=== PATIENT | male | born 1945 | race Caucasian/White ===

== ENCOUNTER 2017-07-02 09:18 | Outpatient (CLI) | payer OTHER, BC ==
[~2017-07-02 09:18] MED LIST: AMIO200T2 PO; DILT120C89 PO; HYDR-4039 PO; LOSA100T11 PO; WARF2.5T2 PO; WARF5TAB2 PO
== END 2017-07-02 19:54 | disposition home or self-care (01) ==
LOC: SNM 09:18
DX: C61 Malignant neoplasm of prostate (principal); M25.559 Pain in unspecified hip; M89.9 Disorder of bone, unspecified
CPT/HCPCS: 78306; A9503

== ENCOUNTER 2018-01-21 17:57 | Emergency (ER) | payer OTHER, BC ==
[~2018-01-21] VITALS: Ht 175.3 cm; Wt 82.1 kg
[~2018-01-21 17:57] MED LIST changes: +AMIO100T4 PO; -AMIO200T2 PO; -LOSA100T11 PO; +LOSA100T3 PO; -WARF2.5T2 PO; +WARF4TAB2 PO; -WARF5TAB2 PO
[2018-01-21 17:58] VITALS: BP_SYST 158
[2018-01-21 18:18] LABS: BILIRUBIN,URINE NEGATIVE (NEGATIVE); CLARITY/URINE CLEAR (CLEAR); COLOR,URINE YELLOW (YELLOW); GLUCOSE,URINE NEGATIVE (NEGATIVE); KETONES,URINE NEGATIVE (NEGATIVE); LEUKOCYTE ESTERASE ,URINE NEGATIVE (NEGATIVE); NITRITE, URINE NEGATIVE (NEGATIVE); PROTEIN URINE NEGATIVE (NEGATIVE); UROBILINOGEN,URINE 0.2 (0.2-1.0)
[2018-01-21 18:19] LABS: BLOOD, URINE TRACE (NEGATIVE)
[2018-01-21 18:25] LABS: BACTERIA,URINE RARE /HPF (None Seen); RBC,URINE 0-3 /HPF (0-3); WBC,URINE 0-3 /HPF (0-3)
[2018-01-21 18:28] LABS: BASOPHILS # (AUTO) 0.1 K/uL (0.0-0.2); EOSINOPHILS # (AUTO) 0.2 K/uL (0.0-0.4); EOSINOPHILS % (AUTO) 2.9 % (0.0-4.0); HEMATOCRIT 42.4 % (36-54); HEMOGLOBIN 14.1 g/dL (14.0-18.0); LYMPHOCYTES # (AUTO) 3.3 K/uL (1.0-5.5); LYMPHOCYTES % (AUTO) 40.2 % (20.5-51.5); MEAN CORPUSCULAR HEMOGLOBIN 30 pg (27-31); MEAN CORPUSCULAR HGB CONC 33 % (32-36); MEAN CORPUSCULAR VOLUME 90 fL (79.0-98.0); MONOCYTES # (AUTO) 0.7 K/uL (0.0-1.0); MONOCYTES % (AUTO) 8.7 % (1.7-9.3); NEUTROPHILS % (AUTO) 47.2 % (40.0-70.0); PLATELET COUNT (AUTO) 266 K/uL (130-430); RED BLOOD CELL COUNT(AUTO) 4.72 MIL/uL (4.2-6.2); RED CELL DISTRIBUTION WIDTH 13.6 % (9.0-15.0); WHITE BLOOD COUNT (AUTO) 8.3 K/uL (4.8-10.8)
[2018-01-21 18:36] LABS: ANION GAP 10 (5-15); CALCIUM 8.7 mg/dL (8.4-11.0); CHLORIDE 105 mmol/L (98-107); CREATININE 0.88 mg/dL (0.55-1.30); GLUCOSE 110 mg/dL (70-99); POTASSIUM 3.4 mmol/L (3.5-5.1); SODIUM SERUM 141 mmol/L (136-145); UREA NITROGEN, BLOOD 18 mg/dL (8-21)
[2018-01-21 18:38] LABS: INR 2.4 (0.80-1.20); PROTHROMBIN TIME 24.6 SECS (9.5-12.5)
[2018-01-21 18:42] LABS: ALANINE AMINOTRANSFERASE 34 U/L (12-78); ALBUMIN 3.9 g/dL (3.4-4.8); ASPARTATE AMINOTRANSFERASE 21 U/L (10-37); TOTAL BILIRUBIN 0.4 mg/dL (0.0-1.0)
[2018-01-21] MEDS ORDERED: POTASSIUM CHLORIDE 10 MEQ TAB.PRT.SR PO ONE (19:00)
[2018-01-21 19:05] VITALS: BP_SYST 158
== END 2018-01-21 19:05 | disposition home or self-care (01) ==
LOC: SED 17:57
DX: R31.9 Hematuria, unspecified (principal); I48.91 Unspecified atrial fibrillation; K21.9 Gastro-esophageal reflux disease without esophagitis; I10 Essential (primary) hypertension; Z85.46 Personal history of malignant neoplasm of prostate; Z79.899 Other long term (current) drug therapy
CPT/HCPCS: 36415; 80053; 81000-TC; 85025; 85610-TC; 85730-TC; 99284

== ENCOUNTER 2018-09-16 08:22 | Emergency (ER) | payer BC, OTHER ==
[~2018-09-16] VITALS: Ht 177.8 cm; Wt 81.6 kg
[2018-09-16 08:22] VITALS: BP_SYST 159
--- NOTE | 2018-09-16 08:22 | NUR ---
BROUGHT BACK TO BED #4 AND TRIAGED. REPORT GIVEN TO ZHAO
--- NOTE | 2018-09-16 08:45 | NUR ---
ROMÁN Guthrie at bedside examining patient.
--- NOTE | 2018-09-16 08:46 | NUR ---
Patient presented to the ER c/o High blood pressure. Patient A&Ox4, afebrile, respirations equal bilat, ambulatory. Patient states he has a home blood pressure monitor at home, this morning he checked BP 196/96 at home so he decided to come to the ER. upon arrival BP 159/90. Patient states he is anxious and wanted to ensure BP was not elevated.
--- NOTE | 2018-09-16 09:14 | NUR ---
Patient given written and verbal discharge instructions and verbalizes understanding. ER MD discussed with patient the results and treatment provided. Patient in stable condition. ID arm band removed. No Rx given. Patient educated on pain management and to follow up with PMD. Pain Scale 0/10 . Opportunity for questions provided and answered. Medication side effect fact sheet provided.
[2018-09-16 09:15] VITALS: BP_SYST 132
== END 2018-09-16 09:15 | disposition home or self-care (01) ==
LOC: SED 08:22
DX: F41.9 Anxiety disorder, unspecified (principal); I10 Essential (primary) hypertension; I48.91 Unspecified atrial fibrillation; K21.9 Gastro-esophageal reflux disease without esophagitis; Z85.46 Personal history of malignant neoplasm of prostate; Z79.899 Other long term (current) drug therapy
CPT/HCPCS: 99283; 99284

== ENCOUNTER 2018-11-08 16:35 | Emergency (ER) | payer BC ==
[~2018-11-08] VITALS: Ht 175.3 cm; Wt 82.6 kg
[2018-11-08 16:37] VITALS: BP_SYST 160
[2018-11-08 17:06] LABS: BILIRUBIN,URINE NEGATIVE (NEGATIVE); BLOOD, URINE 3+ (NEGATIVE); CLARITY/URINE SL HAZY (CLEAR); COLOR,URINE YELLOW (YELLOW); GLUCOSE,URINE NEGATIVE (NEGATIVE); KETONES,URINE NEGATIVE (NEGATIVE); LEUKOCYTE ESTERASE ,URINE NEGATIVE (NEGATIVE); NITRITE, URINE NEGATIVE (NEGATIVE); PROTEIN URINE NEGATIVE (NEGATIVE); UROBILINOGEN,URINE 0.2 (0.2-1.0)
[2018-11-08 17:15] LABS: BACTERIA,URINE FEW /HPF (None Seen); RBC,URINE 50-80 /HPF (0-3); WBC,URINE 0-3 /HPF (0-3)
[2018-11-08 17:16] LABS: MUCUS,URINE None Seen /LPF (None Seen)
[2018-11-08 19:31] VITALS: BP_SYST 154
== END 2018-11-08 19:31 | disposition home or self-care (01) ==
LOC: SED 16:35
DX: N50.3 Cyst of epididymis (principal); I48.91 Unspecified atrial fibrillation; K21.9 Gastro-esophageal reflux disease without esophagitis; I10 Essential (primary) hypertension; F41.9 Anxiety disorder, unspecified; Z85.46 Personal history of malignant neoplasm of prostate; Z79.899 Other long term (current) drug therapy
CPT/HCPCS: 76870-TC; 81000-TC; 87491; 87591; 99284

== ENCOUNTER 2018-11-28 17:23 | Emergency (ER) | payer BC ==
[~2018-11-28] VITALS: Ht 175.3 cm; Wt 83.9 kg
[2018-11-28 17:27] VITALS: BP_SYST 145
[2018-11-28] MEDS ORDERED: MAG HYDROX/AL HYDROX/SIMETH 30 ML, DICYCLOMINE HCL 20 MG, LIDOCAINE VISCOUS 2% 15ML (PO... PO ONE ×3 (17:45)
[2018-11-28 18:18] LABS: BASOPHILS # (AUTO) 0.1 K/uL (0.0-0.2); BASOPHILS % (AUTO) 1.1 % (0.0-2.0); EOSINOPHILS # (AUTO) 0.2 K/uL (0.0-0.4); EOSINOPHILS % (AUTO) 2.7 % (0.0-4.0); HEMATOCRIT 41.1 % (36-54); HEMOGLOBIN 13.4 g/dL (14.0-18.0); LYMPHOCYTES # (AUTO) 2.7 K/uL (1.0-5.5); LYMPHOCYTES % (AUTO) 32.5 % (20.5-51.5); MEAN CORPUSCULAR HEMOGLOBIN 29 pg (27-31); MEAN CORPUSCULAR HGB CONC 33 % (32-36); MEAN CORPUSCULAR VOLUME 89 fL (79.0-98.0); MONOCYTES # (AUTO) 0.7 K/uL (0.0-1.0); MONOCYTES % (AUTO) 8.6 % (1.7-9.3); NEUTROPHILS # (AUTO) 4.6 K/uL (1.8-7.7); NEUTROPHILS % (AUTO) 55.1 % (40.0-70.0); PLATELET COUNT (AUTO) 261 K/uL (130-430); RED BLOOD CELL COUNT(AUTO) 4.62 MIL/uL (4.2-6.2); RED CELL DISTRIBUTION WIDTH 15.3 % (9.0-15.0); WHITE BLOOD COUNT (AUTO) 8.3 K/uL (4.8-10.8)
[2018-11-28 18:26] LABS: ANION GAP 6 (5-15); CALCIUM 8.7 mg/dL (8.4-11.0); CHLORIDE 101 mmol/L (98-107); CREATININE 1.01 mg/dL (0.55-1.30); GLUCOSE 135 mg/dL (70-99); SODIUM SERUM 136 mmol/L (136-145); UREA NITROGEN, BLOOD 17 mg/dL (8-21)
[2018-11-28 18:28] LABS: POTASSIUM 2.7 mmol/L (3.5-5.1)
[2018-11-28] MEDS ORDERED: POTASSIUM CHLORIDE 20 MEQ/PKT PACKET PO ONE (18:30)
[2018-11-28 18:31] LABS: ALANINE AMINOTRANSFERASE 43 U/L (12-78); ALBUMIN 3.4 g/dL (3.4-4.8); ASPARTATE AMINOTRANSFERASE 37 U/L (10-37); LIPASE 81 U/L (73-393); TOTAL BILIRUBIN 0.5 mg/dL (0.0-1.0)
[2018-11-28 19:05] VITALS: BP_SYST 131
== END 2018-11-28 19:05 | disposition home or self-care (01) ==
LOC: SED 17:23
DX: R10.9 Unspecified abdominal pain (principal); E11.9 Type 2 diabetes mellitus without complications; I10 Essential (primary) hypertension; Z85.46 Personal history of malignant neoplasm of prostate; Z79.899 Other long term (current) drug therapy
CPT/HCPCS: 36415; 71045; 80053; 82550; 83690; 84484; 85025; 93005; 99284; J2001

== ENCOUNTER 2019-05-29 11:46 | Emergency (ER) | payer BC ==
[~2019-05-29] VITALS: Ht 175.3 cm; Wt 80.3 kg
[2019-05-29 12:26] VITALS: BP_SYST 139
[2019-05-29 13:07] LABS: ANION GAP 8 (5-15); CALCIUM 9.3 mg/dL (8.4-11.0); CHLORIDE 101 mmol/L (98-107); CREATININE 1.17 mg/dL (0.55-1.30); GLUCOSE 104 mg/dL (70-99); POTASSIUM 3.3 mmol/L (3.5-5.1); SODIUM SERUM 140 mmol/L (136-145); UREA NITROGEN, BLOOD 21 mg/dL (8-21)
[2019-05-29 13:12] LABS: BASOPHILS # (AUTO) 0.1 K/uL (0.0-0.2); BASOPHILS % (AUTO) 0.8 % (0.0-2.0); EOSINOPHILS # (AUTO) 0.1 K/uL (0.0-0.4); EOSINOPHILS % (AUTO) 1.9 % (0.0-4.0); HEMATOCRIT 42.8 % (36-54); HEMOGLOBIN 14.4 g/dL (14.0-18.0); LYMPHOCYTES # (AUTO) 2.1 K/uL (1.0-5.5); LYMPHOCYTES % (AUTO) 27.6 % (20.5-51.5); MEAN CORPUSCULAR HEMOGLOBIN 30 pg (27-31); MEAN CORPUSCULAR HGB CONC 34 % (32-36); MEAN CORPUSCULAR VOLUME 90 fL (79.0-98.0); MONOCYTES # (AUTO) 0.6 K/uL (0.0-1.0); MONOCYTES % (AUTO) 8.1 % (1.7-9.3); NEUTROPHILS # (AUTO) 4.7 K/uL (1.8-7.7); NEUTROPHILS % (AUTO) 61.6 % (40.0-70.0); PLATELET COUNT (AUTO) 282 K/uL (130-430); RED BLOOD CELL COUNT(AUTO) 4.75 MIL/uL (4.2-6.2); RED CELL DISTRIBUTION WIDTH 14.5 % (9.0-15.0); WHITE BLOOD COUNT (AUTO) 7.6 K/uL (4.8-10.8)
[2019-05-29 13:13] LABS: ALANINE AMINOTRANSFERASE 35 U/L (12-78); ALBUMIN 4.2 g/dL (3.4-4.8); ASPARTATE AMINOTRANSFERASE 21 U/L (10-37); TOTAL BILIRUBIN 0.7 mg/dL (0.0-1.0)
--- NOTE | 2019-05-29 14:07 | NUR ---
Patient to ER bed 04 to gown for evaluation. Side rails up.
--- NOTE | 2019-05-29 14:10 | NUR ---
ROMÁN Lang examining patient.
--- NOTE | 2019-05-29 14:12 | NUR ---
Patient arrived via POV, AAOx4, and ambulatory with steady gait. Patient c/c of ongoing daily nausea and dyspepsia for one month. Patient notes mild non radiating pain to the epigastric region. Patient was given a 2 week prescription of Zantac with limited relief. Patient states pain and nausea are worse after eating. Patient states no vomiting, diarrhea, fever, or recent illness. Patient calm and cooperative. Will continue to follow up and monitor.
[2019-05-29] MEDS ORDERED: MAG HYDROX/AL HYDROX/SIMETH 30 ML, LIDOCAINE VISCOUS 2% 15ML (PO) 10 ML, DICYCLOMINE HC... PO ONE ×3 (14:30)
[2019-05-29] MEDS ORDERED: POTASSIUM CHLORIDE 20 MEQ/PKT PACKET PO ONE (14:30)
[2019-05-29 14:52] LABS: BILIRUBIN,URINE NEGATIVE (NEGATIVE); BLOOD, URINE 1+ (NEGATIVE); CLARITY/URINE CLEAR (CLEAR); COLOR,URINE YELLOW (YELLOW); GLUCOSE,URINE NEGATIVE (NEGATIVE); KETONES,URINE NEGATIVE (NEGATIVE); LEUKOCYTE ESTERASE ,URINE NEGATIVE (NEGATIVE); NITRITE, URINE NEGATIVE (NEGATIVE); PROTEIN URINE TRACE (NEGATIVE); UROBILINOGEN,URINE 0.2 (0.2-1.0)
[2019-05-29 14:58] LABS: WBC,URINE 0-3 /HPF (0-3)
[2019-05-29 14:59] LABS: BACTERIA,URINE RARE /HPF (None Seen); MUCUS,URINE 1+ /LPF (None Seen)
--- NOTE | 2019-05-29 15:51 | NUR ---
Patient states pain is resolved, inquiring about lab results.
[2019-05-29 16:03] VITALS: BP_SYST 131
--- NOTE | 2019-05-29 16:03 | NUR ---
Patient given written and verbal discharge instructions and verbalizes understanding. ER MD discussed with patient the results and treatment provided. Patient in stable condition. ID arm band removed. Rx of Omeprazole given. Patient educated on pain management and to follow up with PMD. Pain Scale 0/10. Opportunity for questions provided and answered. Medication side effect fact sheet provided.
== END 2019-05-29 16:03 | disposition home or self-care (01) ==
LOC: SED 11:46
DX: K21.9 Gastro-esophageal reflux disease without esophagitis (principal); R31.9 Hematuria, unspecified; E87.6 Hypokalemia; E11.9 Type 2 diabetes mellitus without complications; I10 Essential (primary) hypertension; Z79.899 Other long term (current) drug therapy; Z85.46 Personal history of malignant neoplasm of prostate
CPT/HCPCS: 36415; 80053; 81000-TC; 84484; 85025; 93005; 99284

== ENCOUNTER 2019-06-08 17:10 | Emergency (ER) | payer BC ==
[~2019-06-08] VITALS: Ht 177.8 cm; Wt 81.6 kg
[2019-06-08 17:10] VITALS: BP_SYST 156
--- NOTE | 2019-06-08 17:10 | NUR ---
BROUGHT BACK TO BED #8 AND TRIAGED. REPORT GIVEN TO MIGUEL ÁNGEL
--- NOTE | 2019-06-08 17:22 | NUR ---
Pt AAOx4 ambulated into ED c/o pink discoloration in urine starting today. Pt denies dysuria during urination, but feels uncomfortable in his groin now. Pt denies loss of bladder or bowel function. Reports recent diagnosis of GERD. No other injuries/complaints per pt/noted. will continue to monitor.
--- NOTE | 2019-06-08 17:34 | NUR ---
ROMÁN aLng at bedside examining patient.
[2019-06-08 18:04] LABS: BILIRUBIN,URINE NEGATIVE (NEGATIVE); BLOOD, URINE 3+ (NEGATIVE); CLARITY/URINE CLOUDY (CLEAR); COLOR,URINE YELLOW (YELLOW); GLUCOSE,URINE NEGATIVE (NEGATIVE); KETONES,URINE NEGATIVE (NEGATIVE); LEUKOCYTE ESTERASE ,URINE NEGATIVE (NEGATIVE); NITRITE, URINE NEGATIVE (NEGATIVE); PH,URINE 6.5 (5.0-8.0); PROTEIN URINE TRACE (NEGATIVE)
[2019-06-08 18:16] LABS: BACTERIA,URINE FEW /HPF (None Seen); RBC,URINE >100 /HPF (0-3); WBC,URINE 0-3 /HPF (0-3)
--- NOTE | 2019-06-08 19:04 | NUR ---
Care endorsed to Blue ESCOBEDO
[2019-06-08 19:25] VITALS: BP_SYST 144
--- NOTE | 2019-06-08 19:25 | NUR ---
Patient given written and verbal discharge instructions and verbalizes understanding. ER MD discussed with patient the results and treatment provided. Patient in stable condition. ID arm band removed. Rx of doxycycline given. Patient educated on pain management and to follow up with PMD. Pain Scale 0. Opportunity for questions provided and answered. Medication side effect fact sheet provided.
== END 2019-06-08 19:25 | disposition home or self-care (01) ==
LOC: SED 17:10
DX: R31.9 Hematuria, unspecified (principal); I10 Essential (primary) hypertension; Z79.899 Other long term (current) drug therapy; Z85.46 Personal history of malignant neoplasm of prostate
CPT/HCPCS: 81000-TC; 99284

== ENCOUNTER 2019-07-18 04:27 | Emergency (ER) | payer BC ==
[~2019-07-18] VITALS: Ht 175.3 cm; Wt 77.1 kg
[2019-07-18 04:49] VITALS: BP_SYST 156
--- NOTE | 2019-07-18 04:55 | NUR ---
Pt placed to ER bed 07, to gown.
--- NOTE | 2019-07-18 05:00 | NUR ---
Report given to FANNY Lorenz.
--- NOTE | 2019-07-18 05:03 | NUR ---
Dr. Day at bedside.
--- NOTE | 2019-07-18 05:10 | NUR ---
Pt brought to ED by a neighbor. is awake, alert, oriented x4. Pt states that he had onset of nausea, dizziness and vertigo-like symptoms at home. Pt states that the symptoms wer unprovoked, and he was lying in bed. Pt states that he called a nurse help line and reported his symptoms, they told him to go to er. Pt states that he then was brought to ER, but symptoms have resolved after arriving to the er. pt states he burped a few times and the dizziness relieved itself. pt states he has hx of gerd. Pt denies chest pain, vomiting, diarrhea, shortness of breath. Pt denies any other medical complaint at this time. VSS, pt resting in ED bed no acute distress.
--- NOTE | 2019-07-18 05:30 | NUR ---
Arash jones in [facility] - 07/18/19 at 0535 by SDDIAJ X-ray at bedside.
--- NOTE | 2019-07-18 05:30 | NUR ---
X-ray at bedside.
[2019-07-18 06:17] LABS: BASOPHILS # (AUTO) 0.1 K/uL (0.0-0.2); BASOPHILS % (AUTO) 1.1 % (0.0-2.0); EOSINOPHILS # (AUTO) 0.1 K/uL (0.0-0.4); EOSINOPHILS % (AUTO) 1.2 % (0.0-4.0); HEMOGLOBIN 12.9 g/dL (14.0-18.0); LYMPHOCYTES # (AUTO) 1.5 K/uL (1.0-5.5); LYMPHOCYTES % (AUTO) 25.1 % (20.5-51.5); MEAN CORPUSCULAR HEMOGLOBIN 31 pg (27-31); MEAN CORPUSCULAR HGB CONC 33 % (32-36); MEAN CORPUSCULAR VOLUME 92 fL (79.0-98.0); MONOCYTES # (AUTO) 0.6 K/uL (0.0-1.0); MONOCYTES % (AUTO) 9.3 % (1.7-9.3); NEUTROPHILS # (AUTO) 3.8 K/uL (1.8-7.7); NEUTROPHILS % (AUTO) 63.3 % (40.0-70.0); PLATELET COUNT (AUTO) 248 K/uL (130-430); RED BLOOD CELL COUNT(AUTO) 4.24 MIL/uL (4.2-6.2); RED CELL DISTRIBUTION WIDTH 14.6 % (9.0-15.0); WHITE BLOOD COUNT (AUTO) 6.1 K/uL (4.8-10.8)
[2019-07-18 06:20] LABS: BILIRUBIN,URINE NEGATIVE (NEGATIVE); BLOOD, URINE 3+ (NEGATIVE); CLARITY/URINE CLEAR (CLEAR); COLOR,URINE YELLOW (YELLOW); GLUCOSE,URINE NEGATIVE (NEGATIVE); KETONES,URINE NEGATIVE (NEGATIVE); LEUKOCYTE ESTERASE ,URINE NEGATIVE (NEGATIVE); NITRITE, URINE NEGATIVE (NEGATIVE); PROTEIN URINE NEGATIVE (NEGATIVE); UROBILINOGEN,URINE 0.2 (0.2-1.0)
[2019-07-18 06:26] LABS: ANION GAP 6 (5-15); CALCIUM 8.5 mg/dL (8.4-11.0); CHLORIDE 99 mmol/L (98-107); CREATININE 0.93 mg/dL (0.55-1.30); GLUCOSE 101 mg/dL (70-99); POTASSIUM 3.2 mmol/L (3.5-5.1); SODIUM SERUM 138 mmol/L (136-145); UREA NITROGEN, BLOOD 19 mg/dL (8-21)
[2019-07-18 06:29] LABS: INR 1.3 (0.80-1.20); PROTHROMBIN TIME 12.7 SECS (9.5-12.5)
[2019-07-18 06:31] LABS: ALANINE AMINOTRANSFERASE 35 U/L (12-78); ALBUMIN 3.5 g/dL (3.4-4.8); ASPARTATE AMINOTRANSFERASE 21 U/L (10-37); BACTERIA,URINE FEW /HPF (None Seen); RBC,URINE 20-50 /HPF (0-3); TOTAL BILIRUBIN 0.5 mg/dL (0.0-1.0); WBC,URINE 0-3 /HPF (0-3)
[2019-07-18] MEDS ORDERED: POTASSIUM CHLORIDE 20 MEQ TAB.PRT.SR PO ONE (07:00)
[2019-07-18 07:15] VITALS: BP_SYST 156
--- NOTE | 2019-07-18 07:16 | NUR ---
Patient given written and verbal discharge instructions and verbalizes understanding. ER MD discussed with patient the results and treatment provided. Patient in stable condition. ID arm band removed. Patient educated on pain management and to follow up with PMD. Pain Scale 0/10. Opportunity for questions provided and answered. Medication side effect fact sheet provided.
== END 2019-07-18 07:16 | disposition home or self-care (01) ==
LOC: SED 04:27
DX: R42 Dizziness and giddiness (principal); D64.9 Anemia, unspecified; I48.91 Unspecified atrial fibrillation; I10 Essential (primary) hypertension; K21.9 Gastro-esophageal reflux disease without esophagitis; Z79.01 Long term (current) use of anticoagulants
CPT/HCPCS: 36415; 71045; 80053; 81000-TC; 83880; 84484; 85025; 85610-TC; 85730-TC; 93005; 99284

== ENCOUNTER 2022-09-20 10:55 | Emergency (ER) | payer BC ==
[~2022-09-20] VITALS: Ht 177.8 cm; Wt 79.4 kg
[~2022-09-20 10:55] MED LIST changes: -LOSA100T3 PO; +LOSA100T4 PO
[2022-09-20 10:59] VITALS: BP_SYST 143
--- NOTE | 2022-09-20 11:15 | NUR ---
CK VALLES [phone] DAUGHTER (POWER OF [employer]PER[employer]) STATES RECENT ELEVATION IN B/P 180'S, PMD STOPPED "DEMENT[facility] MED".
--- NOTE | 2022-09-20 11:35 | NUR ---
PT BIB SELF AWAKE AND ALERT AOX 4. NO SOB OR DISTRESS. PT C/O HYPERTENSION AT HOME. PT STATE AT HOME HIS SPB WAS IN THE 170'S. PT DENIES CHEST PAIN, N/V. PT HAS HX OF A-FIB, HTN, BLADDER CANCER. BP UPON ARRIVAL IN BED WAS 136/81, OH 65.
--- NOTE | 2022-09-20 11:36 | NUR ---
MD DR EDWARDS AT BEDSIDE
[2022-09-20 12:39] VITALS: BP_SYST 131
--- NOTE | 2022-09-20 12:45 | NUR ---
Patient given written and verbal discharge instructions and verbalizes understanding. ER MD DR EDWARDS discussed with patient the results and treatment provided. Patient in stable condition. ID arm band removed. Patient educated on pain management and to follow up with PMD. Pain Scale 0/10. Opportunity for questions provided and answered. Medication side effect fact sheet provided.
== END 2022-09-20 12:45 | disposition home or self-care (01) ==
LOC: SED 10:55
DX: I10 Essential (primary) hypertension (principal); Z79.899 Other long term (current) drug therapy
CPT/HCPCS: 93005; 99283